=== PATIENT | male | born 1990 | race Caucasian/White ===

== ENCOUNTER 2017-02-22 15:22 | Inpatient (IN) | payer BC, OTHER ==
[~2017-02-22] VITALS: Ht 172.7 cm; Wt 77.1 kg
--- NOTE | 2017-02-22 00:22 | NUR ---
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 HEIGHT IS 5'8 AND WEIGHT IS 170 LBS. BODY CHECK DONE. PATIENT NOTED WITH SCABS ON FACE, CHEST , LEFT ARM AND LEFT HIP DUE TO PICKING. PATIENT REQUESTED TO BE FULL CODE AND ON REGULAR DIET. LUNGS CLEAR AND ABDOMEN SOFT AND NON-DISTENDED. BOWEL SOUNDS ACTIVE ON ALL 4 QUADRANT. PATIENT DOES NOT HAVE PCP. PATIENT REPORTS PMH OF ANXIETY, DEPRESSION, SEIZURE 3 YEARS AGO FROM BENZO WITHDRAWAL AND OVERDOSE ON WEDNESDAY BUT REFUSE TO GO TO HOSPITAL FOR TREATMENT. PATIENT IS CURRENTLY HOMELESS BUT PREVIOUSLY LIVING IN [facility] AND UNEMPLOYED. PATIENT'S SUBSTANCE HISTORY: ETOH (BEER AND VODKA)-STARTED DRINKING AT AGE 17. PATIENT DRINKS 12 BEERS AND 1 PINT-FIFTH OF VODKA FOR 3 YEARS. LAST DRINK WAS 12 BEERS ON 02/22/17 HEROIN IV-STARTED USING AT AGE 23. INJECTS 2-3 GRAMS DAILY FOR 4 YEARS . LAST USE WAS 2 GRAMS ON 02/22/17 CRACK COCAINE -STARTED USING AT AGE 22. PATIENT SMOKES GRAM-2 GRAMS DAILY FOR 4 YEARS. LAST USE WAS 2 GRAMS ON 02/22/17 METHAMPHETAMINE IV-STARTED USING AT AGE 26. INJECTS GRAM DAILY FOR 4 MONTHS. LAST USE WAS 2-3 GRAMS ON 02/21/17 TREATMENT HISTORY DEZ CORNELIUS - 6 MONTHS AGO FOR 28 DAYS. PATIENT BROUGHT HOME MEDS-RECONCILED. PATIENT ORIENTED TO SURROUNDINGS AND HOW TO USE CALL LIGHT. PLACED ON FALL/SEIZURE PRECAUTION. SAFETY MEASURES IN PLACE. CALL LIGHT IN REACH. WILL CONTINUE TO MONITOR.
[2017-02-22 23:30] VITALS: BP 126/72
--- NOTE | 2017-02-22 23:30 | NUR ---
INTAKE ASSESSMENT VS BP-126/72 T-97.9 P-95 R-18 PA-10. SpO2 AT 99% IN RA. PATIENT AMBULATORY WITH STEADY GAIT. SPEECH IS CLEAR AND ANSWERS QUESTIONS APPROPRIATELY. PATIENT IS ALLERGIC TO PENICILLIN AND ZOLOFT. PATIENT HAS HISTORY OF SEIZURE 3 YEARS AGO FROM BENZO WITHDRAWAL. PATIENT REPORTS ANXIETY, NAUSEA NO EMESIS , ABDOMINAL CRAMPING AND DIARRHEA. WILL CONTINUE ADMISSION ON 3RD FLOOR.
[2017-02-23 00:29] LABS: BASOPHILS # (AUTO) 0.1 K/uL (0.0-8.0); BASOPHILS % (AUTO) 0.8 % (0.0-2.0); EOSINOPHILS # (AUTO) 0.3 K/uL (0.0-0.7); EOSINOPHILS % (AUTO) 2.5 % (0.0-7.0); HEMATOCRIT 46.4 % (40-50); HEMOGLOBIN 15.9 G/DL (14.0-18.0); LYMPHOCYTES # (AUTO) 3.2 K/UL (0.8-4.8); MEAN CORPUSCULAR HEMOGLOBIN 30.4 UUG (27.0-31.0); MEAN CORPUSCULAR HGB CONC 34 g/dL (32.0-37.0); MEAN CORPUSCULAR VOLUME 88.5 FL (82.0-92.0); MONOCYTES # (AUTO) 0.7 K/UL (0.1-1.30); MONOCYTES % (AUTO) 7.2 % (0.0-11.0); NEUTROPHILS # (AUTO) 5.7 K/UL (1.8-8.9); NEUTROPHILS % (AUTO) 57.5 % (38.5-71.5); PLATELET COUNT (AUTO) 269 K/UL (150-450); RED BLOOD CELL COUNT(AUTO) 5.25 MIL/UL (4.7-6.1)
[2017-02-23 00:33] LABS: ALANINE AMINOTRANSFERASE 75 U/L (16-63); ALKALINE PHOSPHATASE 65 U/L (50-136); AMYLASE 33 U/L (25-115); ASPARTATE AMINOTRANSFERASE 33 U/L (15-37); BILIRUBIN,TOTAL 0.7 mg/dL (0.2-1.0); CARBON DIOXIDE 33 mmol/L (21-32); CHLORIDE 102 mmol/L (98-107); CREATININE 1.6 mg/dL (0.6-1.3); GLUCOSE 79 mg/dL (74-106); MAGNESIUM 1.9 mg/dL (1.8-2.4); POTASSIUM 4.3 mmol/L (3.5-5.1); TOTAL PROTEIN, SERUM 8.6 g/dL (6.4-8.2); UREA NITROGEN, BLOOD 15 mg/dL (7-18)
[2017-02-23 00:40] LABS: *AMPHETAMINE, URINE POSITIVE (NEGATIVE); *BARBITURATE, URINE NEGATIVE (NEGATIVE); *CANNABINOID, URINE NEGATIVE (NEGATIVE); *COCCAINE, URINE POSITIVE (NEGATIVE); *OPIATE, URINE POSITIVE (NEGATIVE); *PHENCYCLIDINE SCREEN,URINE NEGATIVE (NEGATIVE)
[2017-02-23 00:42] LABS: ETHANOL < 3 MG/DL (0-0)
--- NOTE | 2017-02-23 00:55 | NUR ---
PRN ROBAXIN, ATIVAN AND THIAMINE IM PATIENT C/O GENERALIZED BODY ACHES , PRN ROBAXIN GIVEN. PATIENT ANXIOUS, RESTLESS , UNABLE TO SIT STILL, PACING INSIDE ROOM, SLIGHTLY AGITATED CIWA 14. PRN ATIVAN GIVEN AND THIAMINE IM GIVEN ON LEFT DELTOID. WILL MONITOR FOR EFFECTIVENESS
[2017-02-23] MEDS ORDERED: DOCU-141 PO (01:30)
[2017-02-23] MEDS ORDERED: BUPR300T54 PO (01:30)
[2017-02-23] MEDS ORDERED: TRAZ-144 PO (01:30)
[2017-02-23] MEDS ORDERED: NICO1PAT27 TP (01:30)
[2017-02-23] MEDS ORDERED: MULT1TAB73 PO (01:30)
[2017-02-23] MEDS ORDERED: ONDA4TAB5 PO (01:30)
[2017-02-23] MEDS ORDERED: IBUP-2269 PO (01:30)
[2017-02-23] MEDS ORDERED: CLON0.1T PO (01:30)
[2017-02-23] MEDS ORDERED: VILA10TA PO (01:30)
[2017-02-23] MEDS ORDERED: GABA800T2 PO (01:30)
[2017-02-23] MEDS ORDERED: VITA1TAB34 PO (01:30)
--- NOTE | 2017-02-23 01:49 | NUR ---
PRN SUBUTEX AND MOTRIN ADMINISTRATION PATIENT C/O ABDOMINAL CRAMPING, DIARRHEA, STUFFY NOSE AND HEADACHE , COWS 17. PRN SUBUTEX GIVEN AND MOTRIN GIVEN. WILL MONITOR FOR EFFECTIVENESS
--- NOTE | 2017-02-23 01:55 | NUR ---
PRN ROBAXIN AND ATIVAN RE-ASSESSMENT PATIENT STATES ROBAXIN AND ATIVAN IS HELPFUL. CIWA WENT DOWN TO 5. WILL CONTINUE TO MONITOR. PATIENT CONTINUE TO C/O DIARRHEA AND STILL UNABLE TO STILL. PATIENT REFUSED IMODIUM AND BENADRYL . EDUCATE PATIENT REGARDING MEDICATION
--- NOTE | 2017-02-23 02:49 | NUR ---
PRN SUBUTEX AND MOTRIN RE-ASSESSMENT PATIENT STILL ANXIOUS BUT STATES HE FEELS MUCH BETTER . COWS IS NOW 7. PAIN LEVEL IS 2/10, TOLERABLE. WILL CONTINUE TO MONITOR
[2017-02-23 04:00] VITALS: BP 128/70
--- NOTE | 2017-02-23 06:22 | NUR ---
PRN ATIVAN ADMINISTRATION PATIENT RESTLESS, AGITATED, C/O SEVERE ANXIETY. CIWA 15. NON-PHARMACOLOGICAL INTERVENTION INEFFECTIVE. PRN ATIVAN GIVEN. WILL MONITOR EFFECTIVENESS
--- NOTE | 2017-02-23 07:22 | NUR ---
PRN ATIVAN RE-ASSESSMENT PATIENT IN BED RESTING, STILL ANXIOUS BUT ATIVAN WAS HELPFUL . CIWA 4 AT THIS TIME. WILL CONTINUE TO MONITOR.
--- NOTE | 2017-02-23 07:30 | NUR ---
Start of shift note; Received report from night nurse. Patient is a 26 year old male admitted on 02/22/17 for ETOH/Opiate/ Methamphetamine. Patient to be evaluated by MD today. Patient reported history of anxiety, depression, seizure 3 years ago. Patient is on full code status. Patient had multiple scabs on face, chest, extremities d/t skin picking. Patient is on fall and seizure precaution. Patient did not sleep all night and noted to be very anxious. All safety measures secured. Will continue to monitor patient.
--- NOTE | 2017-02-23 07:31 | NUR ---
END OF SHIFT NOTE PATIENT DID NOT SLEEP. FLUID INTAKE 350ML. VOIDED X 1. BM X 1. PATIENT WAS GIVEN THIAMINE IM ON LEFT DELTOID. PRN ATIVAN X 2, MOTRIN, ROBAXIN AND SUBUTEX . RELAXATION AND REDIRECTION PROVIDED. ON FALL/SEIZURE PRECAUTION. SAFETY MEASURES IN PLACE. CALL LIGHT IN REACH. WILL CONTINUE TO MONITOR.
[2017-02-23 08:00] VITALS: BP 102/65
--- NOTE | 2017-02-23 09:49 | NUR ---
Patient communication; Clarified with patient regarding previous living situation and treatment prior to admission to [facility]. Patient stated that he was at [facility] for a week for approximately 2 month ago, unable to recall exact dates. After being discharged from [facility] patient was living with his friend. Patient does not qualify for MRSA.
--- NOTE | 2017-02-23 10:09 | NUR ---
PRN medications; Patient's current COWS score is 12 and CIWA score of 9. Patient is showing obvious s/s of withdrawals manifested by Anxiety, agitation, stomach cramps, diaphoresis, flushed face, irritability, muscle aches, stuffy nose. PRN Subutex 4mg SL given for COWS of 12 and Ativan 1mg PO given for CIWA of 9. Will continue to monitor patient for effectiveness of medication.
--- NOTE | 2017-02-23 10:39 | NUR ---
Re-assessment; Patient still appears to be withdrawing with current COWS score of 12. PRN medication is effective. MD was notified.
--- NOTE | 2017-02-23 11:09 | NUR ---
Re-assessment; Patient's current CIWA score is 9, patient is still showing s/s of withdrawals. PRN medication is effective. MD was notified.
--- NOTE | 2017-02-23 11:30 | NUR ---
MD order (one time order); MD ordered one time dose of Ativan 1mg PO and Subutex 4mg SL one time dose per MD for withdrawal symptoms. Will continue to monitor patient for effectiveness of medication.
[2017-02-23 12:00] VITALS: BP 115/84
--- NOTE | 2017-02-23 12:30 | NUR ---
Re-assessment; Patient is still showing s/s of withdrawals. Patient's current COWS is 12 and CIWA of 9. Patient to start Ativan and Subutex tapers at 1300. Will continue to monitor patient.
--- NOTE | 2017-02-23 13:58 | NUR ---
Patient communication; Patient stated that he wants to leave AMA due to personal concerns. MD was notified.
--- NOTE | 2017-02-23 15:26 | NUR ---
New order; Patient was seen and assessed by . ordered, Ativan 2mg PO one time dose to help reduce withdrawal symptoms. Patient's current CIWA is 8 manifested by increase anxiety, agitation, sweating, flushed face and muscle aches. Will continue to monitor patient for effectiveness of medication.
--- NOTE | 2017-02-23 15:26 | NUR ---
Re-assessment; Patient was re-assessed, current COWS score is 10 and CIWA of 6. Medications were effective inr educing withdrawal symptoms.
[2017-02-23 16:00] VITALS: BP 127/77
--- NOTE | 2017-02-23 19:30 | NUR ---
End of shift note; Patient is AOX4. Patient is a 26 year old male admitted on 02/22/17 for ETOH/Opiate/ Methamphetamine. Patient was evaluated by medical MD and psych MD today. Patient was placed on a 5 day Ativan and 5 day Subutex taper. Patient reported history of anxiety, depression, seizure 3 years ago. Patient is on full code status. Patient had multiple scabs on face, chest, extremities d/t skin picking and currently being treated with triple antibiotic. Patient is on fall and seizure precaution. Unit protocols and policies were explained to patient, verbalized understanding. Met all patient's needs.
[2017-02-23 20:00] VITALS: BP 124/90
--- NOTE | 2017-02-23 20:00 | NUR ---
Start of shift note Received a 26 year old male admitted on 02/22/17 for ETOH/Opiate/ Methamphetamine. Px reported history of anxiety, depression, seizure 3 years ago. Px is allergic to Penicillin and Sertraline. Patient is on regular diet and on full code status. Patient had multiple scabs on face, chest, extremities d/t skin picking. Patient is on fall and seizure precaution. Heightened anxiety noted. COWS 13, CIWA 14. All safety measures secured. Well continue to monitor patient.
--- NOTE | 2017-02-23 20:00 | NUR ---
Px refusal to sign Home meds Px wanted to get the his home meds kept in his room. Already explained many times about the rules and regulations about the home meds but Px is a bit confused about the rules and regulation. Px refused to sign the home meds bag. We'll continue to monitor.
--- NOTE | 2017-02-23 21:06 | NUR ---
Refusal of Seroquel Px refused to take Quetiapine Fumarate 100mg 1 tab PO, as standing order at 2100H. Px explained that he got some bad effects every time he is taking the medication. Well continue to monitor.
[2017-02-24] VITALS: BP 101/63
[2017-02-24 04:00] VITALS: BP 110/65
--- NOTE | 2017-02-24 04:00 | NUR ---
COWS and CIWA deferred Px was sleeping at 0400, COWS and CIWA assessment deferred, to assess if the px is awake per doctor's order. We'll continue to monitor.
[2017-02-24 06:09] LABS: HEPATITIS B SURFACE AG Negative (Negative)
--- NOTE | 2017-02-24 07:20 | NUR ---
Start of Shift Equity Trader received report on 26 year old male admitted on 02/22/17 for heroin, methamphetamine, cocaine and ETOH detoxification. Pt reports allergies to PCN and Zoloft. Pt is a full code and regular diet. Pt reports a PMH of anxiety, depression and a seizure 3 years ago. Skin intact, but pt has multiple scabe all over body. Pt currently on a 5 day Aivan and 5 day Subutex taper, tolerating well. Pts last COWS 10 and CIWA 11 recorded at 0000, per night nurse. Pt did not receive PRN medication on the shift lab technician and slept for 7 hours. Bed in low position with wheels locked and side rails up x2, call light within reach. Will continue to monitor, support and encourage according to plan of care.
--- NOTE | 2017-02-24 07:21 | NUR ---
End of shift note A 26 year old male admitted on 02/22/17 for ETOH/Opiate/ Methamphetamine. Px reported history of anxiety, depression, seizure 3 years ago. Px is allergic to Penicillin and Sertraline. Patient is on regular diet and on full code status. Px refused to take Quetiapine Fumarate 100mg 1 tab PO, as standing order at 2100H. Px explained that he got some bad effects every time he is taking the medication. Patient is on fall and seizure precaution. Oral intake of 1,500 ml, voided 3x, no BM. Slept for 7 hrs. All safety measures secured. Last COWS 10, CIWA 11. We'll continue to monitor patient.
[2017-02-24 08:39] VITALS: BP 100/70
--- NOTE | 2017-02-24 10:09 | NUR ---
Pt refuses Seroquel Pt refused medication on the NOC and continues to refuse, stating, " I don't take Seroquel."
[2017-02-24 12:15] VITALS: BP 114/65
[2017-02-24 16:30] VITALS: BP 117/71
--- NOTE | 2017-02-24 16:38 | NUR ---
Refuses Seroquel Pt continues to refuse Seroquel, " why they pushing that stuff on me." " I will take it tomorrow whe nI get the Wellbutrin" Will continue to monitor, support and encourage according to plan of care.
--- NOTE | 2017-02-24 18:07 | NUR ---
Lennox (pt's own medication) Administration Aging Room Hand administered medication, but scanned bag for tomorrow's administration of the medication. Aging Room Hand called pharmacy and was instructed to administer at time of original administration and undo the administration from 143 of tomorrow's dose.
--- NOTE | 2017-02-24 19:05 | NUR ---
End of Shift Senior Private Client Advisor provided report on 26 year old male admitted on 02/22/17 for heroin, methamphetamine, cocaine and ETOH detoxification. Pt reports allergies to PCN and Zoloft. Pt is a full code and regular diet. Pt reports a PMH of anxiety, depression and a seizure 3 years ago. Skin intact, but pt has multiple scabs all over body. Pt currently on a 5 day Ativan and 5 day Subutex taper, tolerating well. Pts last COWS 7 and CIWA 6 recorded at 1600. Pt did not receive PRN medication on this shift. Pt has been somnolent and spent a great deal of time resting in his room. Pt is anxious and has poor boundaries. Bed in low position with wheels locked and side rails up x2, call light within reach. Will continue to monitor, support and encourage according to plan of care.
--- NOTE | 2017-02-24 19:15 | NUR ---
START OF SHIFT : Pt. is 26 year old male admitted on 02/22/17 for heroin, methamphetamine, cocaine and ETOH detoxification. Pt reports allergies to PCN and Zoloft. Pt is a full code and regular diet. Pt reports a PMH of anxiety, depression and a seizure 3 years ago. Skin intact, but pt has multiple scabs all over body. Pt currently on a 5 day Ativan and 5 day Subutex taper started on 02/23/2017, tolerating well. Pts last COWS 7 and CIWA 6 recorded at 16:00. Pt spent a great deal of time resting in his room. Pt is anxious and has poor boundaries. Bed in low position with wheels locked and side rails up x2, call light within reach. Will continue to monitor, support and encourage according to plan of care.
[2017-02-24 20:00] VITALS: BP 117/61
[2017-02-25 04:00] VITALS: BP 110/63
--- NOTE | 2017-02-25 06:40 | NUR ---
END OF SHIFT : Pt. is 26 year old male admitted on 02/22/17 for heroin, methamphetamine, cocaine and ETOH detoxification. Pt reports allergies to PCN and Zoloft. Pt is a full code and regular diet. Pt reports a PMH of anxiety, depression and a seizure 3 years ago. Skin intact, but pt has multiple scabs all over body. Pt currently on a 5 day Ativan and 5 day Subutex taper started on 02/23/2017, tolerating well. Pt. refused his HS Seroquel , medication wasted because was opened. Pt remains compliant with the treatment plan. No PRNs were given during my shift. V/S remain WNL. RR=16, even and unlabored, lungs clear upon auscultation, abdomen soft and non- distended. Pt denies nausea, vomiting and diarrhea. LAST CIWA=3 ,COWS=3 at 0400 , RXUAEC=631 ml, voided x1 , slept 7 hours. Safety measures in place : bed on lowest position with side rails x2 up for safety, call light within reach. Will continue to monitor closely and offer help.
--- NOTE | 2017-02-25 07:49 | NUR ---
START OF SHIFT Received report from rn shift mgr nurse. 26 year old male admitted on 02/22/17 for ETOH, Heroin, Crack/cocaine, and Meth withdrawals. Pt is started on a 5 day Ativan and 5 day Subutex taper and is tolerating well. No PRN medications needed or administered,. Most recent COWS 3 and CIWA 3. V/S remain WNL. Pt slept for 7 hours. Pt refuses Seroquel and per nurse presents with some paranoia. Safety measures in place, will continue to monitor.
[2017-02-25 08:26] VITALS: BP 104/67
[2017-02-25 10:45] LABS: BILIRUBIN,DIRECT 0.1 mg/dL (0.0-0.2); BILIRUBIN,TOTAL 0.4 mg/dL (0.2-1.0); MAGNESIUM 1.8 mg/dL (1.8-2.4); POTASSIUM 4.4 mmol/L (3.5-5.1); TOTAL PROTEIN, SERUM 8.1 g/dL (6.4-8.2)
[2017-02-25 12:20] VITALS: BP 105/64
[2017-02-25 16:52] VITALS: BP 108/67
--- NOTE | 2017-02-25 19:03 | NUR ---
END OF SHIFT Endorsed to night nurse. 26 year old patient admitted on 02/22/17 for ETOH, Heroin, Crack-cocaine and Meth. Pt is compliant with ordered Ativan and Subutex taper. Pt refuses ordered Seroquel throughout shift, Dr. Alfredo is aware. No PRN Medications needed or administered. Pt encouraged to attend group. Most recent COWS are 6 and CIWA is 6. V/S remain WNL. New order for Doxycycline for chest breakout. Education provided. Ambulates with a steady gait. All needs met at this time, night nurse will continue to monitor.
--- NOTE | 2017-02-25 19:15 | NUR ---
START OF SHIFT : Pt. is 26 year old male admitted on 02/22/17 for heroin, methamphetamine, cocaine and ETOH detoxification. Pt reports allergies to PCN and Zoloft. Pt is a full code and regular diet. Pt reports a PMH of anxiety, depression and a seizure 3 years ago. Skin intact, but pt has multiple scabs all over body. Pt currently on a 5 day Ativan and 5 day Subutex taper started on 02/23/2017, tolerating well. Pts last COWS=6 and CIWA=6 recorded at 16:00. Pt spent a great deal of time resting in his room. Pt is anxious and has poor boundaries. Bed in low position with wheels locked and side rails up x2, call light within reach. Will continue to monitor, support and encourage according to plan of care.
[2017-02-25 20:00] VITALS: BP 108/64
--- NOTE | 2017-02-25 21:00 | NUR ---
Pt. REFUSED SEROQUEL Pt. REFUSED HS dose of SEROQUEL. Pt. was informed about importance of following Tx Plan.
--- NOTE | 2017-02-26 06:46 | NUR ---
END OF SHIFT NOTE : Pt. is 26 year old male admitted on 02/22/17 for heroin, methamphetamine, cocaine and ETOH detoxification. Pt reports allergies to PCN and Zoloft. Pt is a full code and regular diet. Pt reports a PMH of anxiety, depression and a seizure 3 years ago. Skin intact, but pt has multiple scabs all over body. Pt currently on a 5 day Ativan and 5 day Subutex taper started on 02/23/2017, tolerating well. Pt. refused to take Seroquel in HS. Pt. remains partially compliant with the treatment plan. No PRNs were given during my shift. V/S remain WNL. RR=16, even and unlabored, lungs clear upon auscultation, abdomen soft and non- distended. Pt denies nausea, vomiting and diarrhea. CIWA and COWS taken when pt. is alert for voiding during the night, LAST CIWA=3 ,COWS=3 at 0400 , HVAPHJ=972 ml, voided x2 , slept 8 1/2 hours. Safety measures in place : bed on lowest position with side rails x2 up for safety, call light within reach. Will continue to monitor closely and offer help.
--- NOTE | 2017-02-26 07:48 | NUR ---
START OF SHIFT Received report from night nurse. 26 year old male patient admitted on 02/22/17. Pt is compliant with ordered Ativan and Subutex taper. No PRN medications needed at night. Most recent COWS 3 and CIWA is 3. Pt slept for 7 hours, with v/s remaining wnl throughout night. Pt continues to refuse Seroquel. Pt is sleeping in bed at this time. Will continue to monitor.
[2017-02-26 08:05] VITALS: BP 104/65
[2017-02-26 12:20] VITALS: BP 125/77
--- NOTE | 2017-02-26 14:58 | NUR ---
REFUSING CLONIDINE Pt is refusing Clonidine 0.1mg at this time stating "it makes me too tired." Pt education provided on being compliant with ordered medications. Pt verbalizes understanding.
[2017-02-26 17:28] VITALS: BP 112/65
--- NOTE | 2017-02-26 19:08 | NUR ---
START OF SHIFT NOTE : Patient is a 26 year old male admitted on 02/22/17 for heroin, methamphetamine, cocaine and ETOH dependence, continue a 5 day Ativan and 5 day Subutex taper since 02/23/2017. Patient tolerating well without ASE. Patient remains compliant with treatment, medications, and diet regime. Patient reports allergies to PCN and Zoloft. Patient is on Full Code, Regular Diet, is on Fall and Seizures Precautions. PMH: Anxiety, Depression. Patient reports a history of withdrawal-induced seizures 3 years ago. Skin has multiple scabs all over body. Last COWS 7 and CIWA 6. Patient presented with anxiety, agitation, nervousness, tremors, nasal stuffy, moist eyes, sweating, and restlessness. Upon initial assessment, patient's . VS WNL. Respirations unlabored and even. Patient denies SOB and chest pain. Lungs Sounds are clear bilaterally. Bowel Sounds active in all x4 quadrants. Abdomen is soft and non-tender. PERRLA, brisk capillary refill, health unit supervisor equal and strong. Skin is warm and dry to touch. Patient has multiple scabs on chest and on the both hips. Encourage fluids as tolerated. Encourage to attend activities groups. All needs met. Safety measures on place. Call light within reach, bed in lowest position and locked, padded rails up bilaterally rails up bilaterally. Patient endorsed by day shift nurse. Report received. Will continue to monitor closely.
--- NOTE | 2017-02-26 19:08 | NUR ---
END OF SHIFT 26 year old male admitted for ETOH/Opiate/cocaine withdrawals. A/O x4. Pt refused scheduled clonidine stating it makes him feel sleepy. Pt was refusing Seroquel and Dr. Coughlin was notified and discontinued medication. Pt denies pain. Most recent COWS 6 and CIWA 5. V/S are WNL. Pt encouraged to attend groups. All needs met, will continue to monitor.
[2017-02-26 20:00] VITALS: BP 123/79
--- NOTE | 2017-02-26 23:39 | NUR ---
PRN SUBUTEX 2 MG 1 TAB SL ADMINISTRATION PRN Subutex 2 mg 1 tab SL administrated for COWS 9 as ordered. Patient tolerated well. All needs met. Safety measures on place. Call light within reach, bed in lowest position and locked, padded rails up bilaterally rails up bilaterally. Will continue to monitor closely.
[2017-02-27] VITALS: BP 121/78
--- NOTE | 2017-02-27 00:39 | NUR ---
RE-ASSESSMENT Patient is sleeping. Respirations even and unlabored. RR:15. PRN Subutex 2 mg 1 tab SL administrated for COWS 9 as ordered was effective. All needs met. Safety measures on place. Call light within reach, bed in lowest position and locked, padded rails up bilaterally rails up bilaterally. Will continue to monitor closely.
[2017-02-27 04:00] VITALS: BP 95/54
--- NOTE | 2017-02-27 07:20 | NUR ---
Start of Shift Shovel Logger received report on 26 year old male admitted on 02/22/17 for heroin, methamphetamine, cocaine and ETOH detoxification. Pt reports allergies to PCN and Zoloft. Pt is a full code and regular diet. Pt reports a PMH of anxiety, depression and a seizure 3 years ago. Skin intact, but pt has multiple scabs all over body. Pt currently on a 5 day Ativan and 5 day Subutex taper, tolerating well. Pts last COWS 6 and CIWA 5, per night nurse. Pt received a PRN dosage of Subutex during the shift production supervisor. Shovel Logger encounters pt in his room resting with eyes closed. Respiration non-labored and even, with rise and fall of chest noted. Bed in low position with wheels locked and side rails up x2, call light within reach. Will continue to monitor, support and encourage according to plan of care.
--- NOTE | 2017-02-27 07:21 | NUR ---
END OF SHIFT NOTE : Patient is a 26 year old male admitted on 02/22/2017 for ETOH, Opioid, Methamphetamine, and Cocaine dependence, continue a 5 day Ativan and 5 day Subutex taper since 02/23/2017. Patient tolerating well without ASE. Patient remains compliant with treatment, medications, and diet regime. Patient reports allergies to PCN and Zoloft. Patient is on Full Code, Regular Diet, is on Fall and Seizures Precautions. PMH: Anxiety, Depression, History of withdrawal-induced seizures 3 years ago. Last COWS 6 @0400 and CIWA 5 @0400. Patient presented with anxiety, agitation, nervousness, tremors that can be felt, nasal stuffy, moist eyes, sweating, and restlessness. VS @0400: T: 97.8, BP: 95/54, HR:66, RR:17, RA O2Sat: 96%. Pain level: "0/10". Patient denies SI/HI. Respirations unlabored and even. Skin is warm and dry to touch. Patient has multiple scabs on chest and on the both hips. PRN Subutex 2 mg 1 tab SL administrated last police shift commander was effective. Encourage fluids as tolerated. Encourage to attend activities groups. All needs met. Safety measures on place. Call light within reach, bed in lowest position and locked, padded rails up bilaterally. Patient endorsed to day shift nurse.
[2017-02-27 08:30] VITALS: BP 99/62
--- NOTE | 2017-02-27 12:26 | NUR ---
OT Subutex ordered OT Subutex. COWS completed. Medication administered per order, pt tolerated well. Will continue to monitor, support and encourage according to plan of care.
[2017-02-27 12:45] VITALS: BP 103/71
--- NOTE | 2017-02-27 13:06 | NUR ---
OT Re-assessment Pt tolerating one-time order well. Pt has been smoking and been social with peers and staff. Pt is needy and requests PRN's and any available medication. Calm and cooperative. Will continue to monitor, support and encourage according to plan of care.
--- NOTE | 2017-02-27 13:11 | NUR ---
PRN Ativan Pt requesting " my PRN's." Pt requests Ativan by name and requests a dosage. Pt is calm and in no distress. Medication administered per MD order, pt tolerated well. Will continue to monitor, support and encourage according to plan of care
--- NOTE | 2017-02-27 14:11 | NUR ---
PRN Re-assessment Pt shows no signs or symptoms of anxiety. Calm, cooperative and rests watching TV when in his room. Pt has a mellow, relaxed mood and congruent affect. Pt in no respiratory distress. Will continue to monitor, support and encourage according to plan of care.
--- NOTE | 2017-02-27 16:31 | NUR ---
Request for Ativan Pt has repeatedly asked flex o writer operator about Ativan and anxiety medication. Architectural Design Lecturer administered 1mg Ativan PRN this afternoon. Pt began asking when he can have again? Began approaching flex o writer operator often and inquiring into how often he can have and if he can have 2mg. Architectural Design Lecturer called Dr. Reyes and alerted MD to writers' interaction with pt. MD assured flex o writer operator, the decision to medicate pt for anxiety is completely up to writers' assessment and judgement and no new orders received. Pt is, and has been calm and cooperative. Social with peers and staff. Bright affect at times, when unseen by staff. Pt shows no signs or symptoms of anxiety, panic, discomfort or respiratory distress noted. Pt requests Ativan at med pass and flex o writer operator informed pt, flex o writer operator would not administer Ativan and the MD was aware flex o writer operator would not administer Ativan without a one-time order. Architectural Design Lecturer has also made CAROL Miller, aware. Will continue to monitor, support and encourage according to plan of care.
[2017-02-27 16:52] VITALS: BP 99/75
--- NOTE | 2017-02-27 18:53 | NUR ---
End of Shift Life Coach provided report on 26 year old male admitted on 02/22/17 for heroin, methamphetamine, cocaine and ETOH detoxification. Pt reports allergies to PCN and Zoloft. Pt is a full code and regular diet. Pt reports a PMH of anxiety, depression and a seizure 3 years ago. Skin intact, but pt has multiple scabs all over body. Pt currently on a 5 day Ativan and 5 day Subutex taper, tolerating well. Pts last COWS 5 and CIWA 6, per last scheduled assessment. Pt received a PRN dose of Ativan and a One Time order of Subutex this shift. Pt is visible on the unit. Pt is A/O x4 and makes his needs known. Pt is somatic, dramatic and focused on medication. Pt has asked several times for Ativan d/t anxiety. Life Coach does not assess pt to have anxiety and not in need of Ativan and has refused to administer Ativan. Dr. Reyes is aware. Bed in low position with wheels locked and side rails up x2, call light within reach. Will continue to monitor, support and encourage according to plan of care.
--- NOTE | 2017-02-27 18:53 | NUR ---
START OF SHIFT NOTE : Patient is a 26 year old male admitted on 02/22/17 for Opioid, ETOH, Methamphetamine, and Cocaine dependence, continue a 5 day Ativan and 5 day Subutex taper since 02/23/2017. Patient tolerating well without ASE. Patient remains compliant with treatment, medications, and diet regime. Patient reports allergies to PCN and Sertraline. Patient is on Full Code, Regular Diet, is on Fall and Seizures Precautions. PMH: Anxiety, Depression, History of withdrawal-induced seizures 3 years ago, Substance abuse, and Chronic Tobacco Use. Upon endorsement, patient is in his room alert and oriented x4, stable gait, speech is soft and clear. COWS 8, CIWA 7. Patient presented with anxiety, agitation, nervousness, tremors thyat can be felt, nasal stuffy, moist eyes, body aching, sweating, and restlessness. Upon initial assessment, patient's . T: 98.4, BP 98/71, HR 84, RR:18, RA O2Sat: 97%. Body aches pain level: "6/10". Patient denies SI/HI. Respirations unlabored and even. Patient denies SOB and chest pain. Lungs Sounds are clear bilaterally. Bowel Sounds active in all x4 quadrants. Abdomen is soft and non-tender. PERRLA, brisk capillary refill, data center engineer equal and strong. Skin is warm and dry to touch. Patient has multiple scabs on chest and on the both hips. Encourage fluids as tolerated. Encourage to attend activities groups. All needs met. Safety measures on place. Call light within reach, bed in lowest position and locked, padded rails up bilaterally rails up bilaterally. Patient endorsed by day shift nurse. Report received. Will continue to monitor closely.
--- NOTE | 2017-02-27 19:39 | NUR ---
PRN ATIVAN 1MG 1 TAB PO ADMINISTRATION FOR CIWA 7 Patient c/o increased anxiety, and asked PRN Ativan administration. Patient's assesses. PRN Ativan 1 mg 1 tab PO for CIWA 7 administrated as ordered. Patient tolerated well. All needs met. Safety measures on place. Call light within reach, bed in lowest position and locked, padded rails up bilaterally rails up bilaterally. Will continue to monitor closely. Addendum: 02/28/17 at 0446 by JAYCOB MEDRANO RN PRN ATIVAN 1MG 1 TAB PO ADMINISTRATED @1943.
[2017-02-27 20:00] VITALS: BP 98/71
--- NOTE | 2017-02-27 20:39 | NUR ---
RE-ASSESSMENT Patient reports that PRN Ativan "decreased anxiety". Respirations even and unlabored. PRN Ativan 1 mg 1 tab PO administrated to patient @ 193 for anxiety was effective. All needs met. Safety measures on place. Call light within reach, bed in lowest position and locked, padded rails up bilaterally rails up bilaterally. Will continue to monitor closely. Addendum: 02/28/17 at 0447 by JAYCOB MEDRANO RN Re-assessment done @2042.
--- NOTE | 2017-02-27 23:49 | NUR ---
Patient c/o increased anxiety, and asked PRN Ativan administration. Patient's assesses. PRN Ativan 1 mg 1 tab PO for CIWA 8 administrated as ordered. Patient tolerated well. All needs met. Safety measures on place. Call light within reach, bed in lowest position and locked, padded rails up bilaterally rails up bilaterally. Will continue to monitor closely.
[2017-02-28] VITALS: BP 121/80
--- NOTE | 2017-02-28 00:49 | NUR ---
RE-ASSESSMENT Patient is sleeping. Respirations even and unlabored. RR 16. PRN Ativan 1 mg 1 tab PO administrated @2349 was effective. All needs met. Safety measures on place. Call light within reach, bed in lowest position and locked, padded rails up bilaterally rails up bilaterally. Will continue to monitor closely.
[2017-02-28 04:00] VITALS: BP 108/61
--- NOTE | 2017-02-28 07:05 | NUR ---
END OF SHIFT NOTE : Patient is a 26 year old male admitted on 02/22/2017 for ETOH, Opioid, Methamphetamine, and Cocaine dependence, continue a 5 day Ativan and 5 day Subutex taper since 02/23/2017. Patient tolerating well without ASE. Patient remains compliant with treatment, medications, and diet regime. Patient reports allergies to PCN and Zoloft. Patient is on Full Code, Regular Diet, is on Fall and Seizures Precautions. PMH: Anxiety, Depression, History of withdrawal-induced seizures 3 years ago. Last COWS 3 @0400 and CIWA 2 @0400. VS @0400: T: 97.9, BP: 108/61, HR:71, RR:15, RA O2Sat: 97%. Pain level: "0/10". Patient denies SI/HI. Respirations unlabored and even. Skin is warm and dry to touch. Patient has multiple scabs on chest and on the both hips. PRN Ativan 1 mg 1 tab PO administrated @1943 and @2349 last night club manager were effective. Patient slept 4 hours, intake 1,500 ml, voided x3. Encourage fluids as tolerated. Encourage to attend activities groups. All needs met. Safety measures on place. Call light within reach, bed in lowest position and locked, padded rails up bilaterally. Patient endorsed to day shift nurse. Report given.
--- NOTE | 2017-02-28 07:45 | NUR ---
END OF SHIFT Rcvd endorsement from ongoing nurse, client is in room, he is a/ox4, he presents with anxious mood, flat affect. He reports anxiety, difficulty sleeping, restless legs, decreased appetite, and fatigue, Encourage client to attend group therapy for skills to maintain sober, he verbalized understanding. Encourage client to increase PO fluid intake as tolerated to facilitate detox. Client is on PO Doxycycline 100mg Q12H 5/6 x days for infection, triple antibiotic TOP to chest for skin picking superficial wound, outcome is in progress. Client is a 26 yo male, admitted to [facility] for withdrawal from alcohol and heroin. He is on last day of 5 day Ativan / Subutex taper, tolerating well. Last CIWA / 4 @ 1999. PRN Ativan 1mg x 2 for CIWA > than 5, noted effective. Client slept 4 hrs. Client reported Allergy to PCN, Sertraline, full code, regular diet. Client reports hx of withdrawal-induced seizure. Side rails x 2 up/padded, bed in lowest/lock position. Call light within reach. Addendum: 02/28/17 at 1552 by RUBEN VILLANUEVA RN START OF SHIFT
[2017-02-28 08:00] VITALS: BP 96/58
[2017-02-28 12:00] VITALS: BP 106/70
[2017-02-28] MEDS ORDERED: BUPR-96 PO (16:26)
[2017-02-28] MEDS ORDERED: CLON0.1T14 PO (16:26)
[2017-02-28] MEDS ORDERED: TRAZ-144 PO (16:26)
[2017-02-28] MEDS ORDERED: DOXY100T2 PO (16:26)
[2017-02-28] MEDS ORDERED: BACL20TA PO (16:26)
[2017-02-28] MEDS ORDERED: GABA-536 PO (16:26)
[2017-02-28] MEDS ORDERED: DICY20TA28 PO (16:26)
[2017-02-28] MEDS ORDERED: DIPH50CA37 PO (16:26)
[2017-02-28] MEDS ORDERED: IBUP-1955 PO (16:26)
[2017-02-28 16:55] VITALS: BP 129/86
--- NOTE | 2017-02-28 18:57 | NUR ---
END OF SHIFT Endorsed client to incoming nurse, client is a 26 yo male, he is a/ox4, he was admitted to [facility] for withdrawal from alcohol and heroin. He completed 5 day Ativan / Subutex taper, tolerating well. Last CIWA 3/COWS 3 @ 1600. Client is schedule for discharge tomorrow to [facility]. Client declined Bentyl 20mg, Clonidine, stating he does not have abdominal spasm of agitation/irritability or anxiety. Adequate PO intake 2056mL, void x 5, stool x 1. Client was compliant with group therapy. Client reported Allergy to PCN, Sertraline, full code, regular diet. Client reports hx of withdrawal-induced seizure. Side rails x 2 up/padded, bed in lowest/lock position. Call light within reach.
--- NOTE | 2017-02-28 18:57 | NUR ---
START OF SHIFT NOTE : Patient is a 26 year old male admitted on 02/22/17 for Opioid, ETOH, Methamphetamine, and Cocaine dependence. Patient completed 5 day Ativan and 5 day Subutex taper since 02/23/2017. Patient tolerating well without ASE. Patient remains compliant with treatment, medications, and diet regime. Patient reports allergies to PCN and Sertraline. Patient is on Full Code, Regular Diet, is on Fall and Seizures Precautions. PMH: Anxiety, Depression, History of withdrawal-induced seizures 3 years ago, Substance abuse, and Chronic Tobacco Use. Upon endorsement, patient is in his room alert and oriented x4, stable gait, speech is soft and clear. COWS 3, CIWA 3. VS: T: 98.4, BP 117/75, HR 77, RR:18, RA O2Sat: 96%. Body aches pain level: "7/10". Patient denies SI/HI. Respirations unlabored and even. Patient denies SOB and chest pain. Lungs Sounds are clear bilaterally. Bowel Sounds active in all x4 quadrants. Abdomen is soft and non-tender. PERRLA, brisk capillary refill, building maintenance worker equal and strong. Skin is warm and dry to touch. Patient has multiple scabs on chest and on the both hips. Encourage fluids as tolerated. Encourage to attend activities groups. All needs met. Safety measures on place. Call light within reach, bed in lowest position and locked, padded rails up bilaterally rails up bilaterally. Patient endorsed by day shift nurse. Report received. Will continue to monitor closely.
[2017-02-28 20:00] VITALS: BP 117/75
--- NOTE | 2017-02-28 20:59 | NUR ---
PRN MOTRIN 600 MG 1 TAB PO ADMINISTRATION Patient c/o Generalized body aches. Patient reports pain level "7/10". PRN Motrin 600 mg 1 tab PO administrated with full glass of water as ordered. Patient tolerated well. All needs met. Safety measures on place. Call light within reach, bed in lowest position and locked, padded rails up bilaterally rails up bilaterally. Will continue to monitor closely.
--- NOTE | 2017-02-28 21:59 | NUR ---
PRN MOTRIN 600 MG 1 TAB PO ADMINISTRATION Patient c/o Generalized body aches. Patient reports pain level "810". PRN Motrin 600 mg 1 tab PO administrated with full glass of water as ordered. Patient tolerated well. All needs met. Safety measures on place. Call light within reach, bed in lowest position and locked, padded rails up bilaterally rails up bilaterally. Will continue to monitor closely. Addendum: 03/01/17 at 0122 by JAYCOB MEDRANO RN wrong notes
--- NOTE | 2017-02-28 21:59 | NUR ---
RE-ASSESSMENT Patient is sleeping. Respirations even and unlabored. RR 17. PRN Motrin 600 mg 1 tab PO administrated to patient @2058 for pain was effective. All needs met. Safety measures on place. Call light within reach, bed in lowest position and locked, padded rails up bilaterally rails up bilaterally. Will continue to monitor closely.
[2017-03-01] VITALS: BP 122/76
--- NOTE | 2017-03-01 04:00 | NUR ---
VS REFUSED AND COWS/CIWA DEFERRED Patient refused to be woken up for 0400 VS. COWS/CIWA deferred d/t patient sleeping to assess while patient is awake. Safety measures on place by hospital policy: Call light within reach; Bed in lowest position and locked; side rails up x2. Will continue to monitor.
--- NOTE | 2017-03-01 07:08 | NUR ---
END OF SHIFT NOTE : Patient is a 26 year old male admitted on 02/22/2017 for ETOH, Opioid, Methamphetamine, and Cocaine dependence Patient continue a 5 day Ativan and 5 day Subutex taper since 02/23/2017. Patient tolerating well without ASE. Patient remains compliant with treatment, medications, and diet regime. Patient reports allergies to PCN and Zoloft. Patient is on Full Code, Regular Diet, is on Fall and Seizures Precautions. PMH: Anxiety, Depression, History of withdrawal-induced seizures 3 years ago. Last COWS 3 @0000 and CIWA 3 @0000. Last VS @0000: T: 98.4, BP: 122/76, HR:78, RR:18, RA O2Sat: 98%. Pain level: "0/10". Patient denies SI/HI. Respirations unlabored and even. Skin is warm and dry to touch. Patient has multiple scabs on chest and on the both hips. PRN Motrin 600 mg 1 tab PO administrated last retail shift leader for pain was effective. Patient slept 4 hours, intake 1,605 ml, voided x4, stool x1 Encourage fluids as tolerated. Encourage to attend activities groups. All needs met. Safety measures on place. Call light within reach, bed in lowest position and locked, padded rails up bilaterally. Patient endorsed to day shift nurse. Report given.
--- NOTE | 2017-03-01 07:10 | NUR ---
Start Of Shift Report received. Pt is a 26 yo male, admitted on 02/22/17 for alcohol and heroin withdrawals. Pt is full code regular diet on fall and seizure precautions reported being allergic to penicillin and Zoloft. PMH of anxiety, depression and seizures due to benzo withdrawals. He completed 5 day Ativan / Subutex taper, tolerating well and is to be discharged today to [facility]. Last CIWA 3/COWS 3 @ 0000. Encouraged pt to drink fluids to facilitate with detox process. Pt received a PRN Motrin last night which was effective per material handler 1st shift nurse. Pt is currently in his room getting ready for D/C. All Safety measures in place, call light within reach bed in lowest locked position. Will continue to monitor and provide care.
[2017-03-01 08:00] VITALS: BP 126/82
[2017-03-01 09:17] VITALS: BP 125/85
--- NOTE | 2017-03-01 09:50 | NUR ---
DISCHARGE NOTE Pt is in stable condition. Vitals WNL, Pt alert and oriented x4, skin intact, Pt denies any SI/HI. All discharge paperwork completed dated and signed. Pt educated about discharge instructions, what to do after discharge when to contact MD as well as the s/s reportable to MD, pt verbalized understanding. Pt was provided with all of his discharge paperwork. Pt's last COWS:1 and CIWA:1 taken at 0800. Pt was discharged from [facility] on 03/01/17 at 0940. Pt left the building with all of his belongings, prescriptions and home medications. MD and psychiatrist have been contacted notified and aware of pt's d/c.
== END 2017-03-01 09:40 | disposition other institution (70) | DRG 895 ==
LOC: SRC 22:59
PROVIDERS: ADMIT Internal Medicine; ATTEND Internal Medicine
PROC: HZ2ZZZZ Detoxification Services for Substance Abuse Treatment (ICD-10-PCS; principal; 2017-02-22)
PROC: HZ31ZZZ Individual Counseling for Substance Abuse Treatment, Behavioral (ICD-10-PCS; 2017-02-25)
PROC: HZ41ZZZ Group Counseling for Substance Abuse Treatment, Behavioral (ICD-10-PCS; 2017-02-26)
DX: F10.232 Alcohol dependence with withdrawal with perceptual disturbance (principal); N17.9 Acute kidney failure, unspecified; E87.3 Alkalosis; F15.221 Other stimulant dependence with intoxication delirium; F11.23 Opioid dependence with withdrawal; Y90.9 Presence of alcohol in blood, level not specified; F17.210 Nicotine dependence, cigarettes, uncomplicated; F14.220 Cocaine dependence with intoxication, uncomplicated; E86.0 Dehydration; Z79.899 Other long term (current) drug therapy; F39 Unspecified mood [affective] disorder; L73.9 Follicular disorder, unspecified; F41.9 Anxiety disorder, unspecified; Z81.8 Family history of other mental and behavioral disorders; Z59.1 Inadequate housing; Z59.0 Homelessness; Z81.1 Family history of alcohol abuse and dependence; Z81.3 Family history of other psychoactive substance abuse and dependence; Z91.89 Other specified personal risk factors, not elsewhere classified; F29 Unspecified psychosis not due to a substance or known physiological condition
CPT/HCPCS: 36415; 70030-TC; 80307; 80324; 80353; 80361; 83735; 85025; 86580; 86592; 86705; 86803; 87340; 87806; A4663; G0480; J1885; J3411; Q0162; Q0163